=== PATIENT | male | born 1980 | race Caucasian/White ===

== ENCOUNTER 2020-09-05 12:30 | Emergency (ER) | payer BC ==
[2020-09-05] MEDS ORDERED: NAPROSYN500 MG PO (14:14)
== END 2020-09-05 15:00 | disposition home or self-care (01) ==
LOC: ER1 12:30
DX: S87.81XA Crushing injury of right lower leg, initial encounter (principal); S90.111A Contusion of right great toe without damage to nail, initial encounter; W23.0XXA Caught, crushed, jammed, or pinched between moving objects, initial encounter; Y92.69 Other specified industrial and construction area as the place of occurrence of the external cause; Y99.0 Civilian activity done for income or pay
CPT/HCPCS: 73562; 73590; 73610; 73630; 99283